=== PATIENT | male | born 1995 | race Caucasian/White ===

== ENCOUNTER 2020-09-23 13:39 | Emergency (ER) | payer SELFPAY ==
[~2020-09-23] VITALS: Ht 175 cm; Wt 86.2 kg
[2020-09-23 13:41] VITALS: BP 146/86
[2020-09-23] MEDS ORDERED: cefTRIAXone 1,000 MG/2.86 ml vial (IM ONLY) IM STA (13:52)
[2020-09-23] MEDS ORDERED: KETOROLAC 60 MG/2 ML VIAL IM STA (13:52)
--- NOTE | 2020-09-23 13:52 | ED EENT ---
History of Present Illness General Chief Complaint: Dental Problems/Pain Stated Complaint: DENTAL PAIN Nursing Triage Note: Patient reports right lower dental pain for 2 days. Source: patient History of Present Illness Date Seen by Provider: Sep 23, 2020 Time Seen by Provider: 13:40 Initial Comments 25-year-old male presenting with complaints of right lower posterior dental pain. He states this has been going on for 2 to 3 days and getting worse. He denies any fever or chills. He denies any trauma to his teeth. He has not had any improvement with taking Tylenol and ibuprofen. He has had similar problems with of the teeth and took some leftover antibiotics however he does not have any medication for this episode. He states that he just recently moved to [facility] and the [facility] and does not have a primary care provider since he has no insurance. Counseled patient on the [facility] clinic so that he could follow-up and be seen as well as the dental clinic availability. He states that he felt like the pain was more severe than any dental pain he had had previously. He has no drainage in his mouth. There is mild swelling to the gums around the posterior teeth on the right lower side. Timing/Duration: gradual Severity: severe Location: dental Prearrival Treatment: no prearrival treatment Associated Symptoms: No change in hearing, No cough, No drooling, No ear drainage; facial pain/swelling (Right mandible and jaw pain); No fever; malaise; No nasal congestion/drainage, No poor fluid intake, No poor solids intake, No sinus infection, No sore throat; tooth pain (Right posterior mandible tooth pain); No voice change Allergies and Home Medications Allergies Coded Allergies: No Known Drug Allergies (Unverified , 09/23/20) Home Medications Amoxicillin 500 Mg Capsule, 500 MG PO TID Prescribed by: ALISON DEAL on 09/23/20 1415 Ibuprofen 800 Mg Tablet, 800 MG PO Q8H PRN for PAIN Prescribed by: ALISON DEAL on 09/23/20 1415 Tramadol HCl 50 Mg Tablet, 50 MG PO Q6H PRN for PAIN-SEVERE (8-10) Prescribed by: ALISON DEAL on 09/23/20 1416 Patient Home Medication List Home Medication List Reviewed: Yes Review of Systems Review of Systems Constitutional: No chills, No fever Eyes: Denies Blurred Vision Ears: No Symptoms Reported Nose: no symptoms reported Mouth: see HPI Throat: no symptoms reported Respiratory: no symptoms reported Cardiovascular: no symptoms reported Gastrointestinal: no symptoms reported Musculoskeletal: no symptoms reported Skin: No rash Neurological: Anxiety Hematologic/Lymphatic: No Symptoms Reported Past Idckggy-Ithzdc-Oforun Hx Past Med/Social Hx: Reviewed Nursing Past Med/Soc Hx Patient Social History Smoking Status: Current Everyday Smoker Recent Infectious Disease Expo: No Past Medical History Surgeries: No Respiratory: Yes Asthma Cardiac: No Neurological: No Genitourinary: No Gastrointestinal: No Musculoskeletal: No Endocrine: No HEENT: No Cancer: No Psychosocial: No Physical Exam Vital Signs Vital Signs - First Documented 09/23/20 13:41 Temp 36.7 Pulse 89 Resp 16 B/P (MAP) 146/86 (106) Pulse Ox 99 O2 Delivery Room Air Height, Weight, BMI Height: '" Weight: lbs. oz. kg; 28.00 BMI Method: General Appearance: mild distress (Anxious) Eyes: bilateral eye PERRL, bilateral eye EOMI Mouth/Throat: dental tenderness (Right posterior mandible dental pain and mild swelling to the gums) Neck: full range of motion, supple Cardiovascular: normal peripheral pulses, regular rate, rhythm Respiratory: chest non-tender, lungs clear, normal breath sounds Neurologic/Psychiatric: alert, oriented x 3 Skin: normal color, warm/dry Progress/Results/Core Measures Results/Orders My Orders Orders - ALISON DEAL MD Ceftriaxone For Im Use (Rocephin For Im (09/23/20 13:52) Ketorolac Injection (Toradol Injection) (09/23/20 13:52) Lidocaine 1% Inj 20 Ml (Xylocaine 1% Inj (09/23/20 14:00) Medications Given in ED Current Medications Medications Dose Ordered Sig/Vidya Route Start Time Stop Time Status Last Admin Dose Admin Lidocaine HCl 2.1 ml ONCE ONCE INJ 09/23/20 14:00 09/23/20 14:01 DC 09/23/20 14:00 2.1 ML Vital Signs/I&O 09/23/20 13:41 Temp 36.7 Pulse 89 Resp 16 B/P (MAP) 146/86 (106) Pulse Ox 99 O2 Delivery Room Air Blood Pressure Mean: 106 Progress Progress Note : Progress Note Treat with Rocephin IM and Toradol shot here in the ED to help with pain and boost his antibiotics. Sent home with prescriptions for amoxicillin, ibuprofen, tramadol. Counseled to follow-up with the [facility] clinic and get established for primary care as well as dental care. Departure Impression Primary Impression: Pain due to dental caries Additional Impression: Dental abscess Disposition: HOME, SELF-CARE Condition: Stable Departure-Patient Inst. Decision time for Depature: 14:12 Referrals: NO,LOCAL PHYSICIAN (PCP) Primary Care Physician [facility] Patient Instructions: Dental Pain ED, Tooth Abscess (DC) Add. Discharge Instructions: Take antibiotics and follow up with Dentist as soon as possible for definitive care Call [phone] if you want to follow up with [facility] and get established for primary care as well as to arrange follow up with dentist All discharge instructions reviewed with patient and/or family. Voiced understanding. Scripts Tramadol HCl (Tramadol HCl) 50 Mg Tablet 50 MG PO Q6H PRN for PAIN-SEVERE (8-10) for 3 Days, #12 TAB 0 Refills Prov: ALISON DEAL MD 09/23/20 Amoxicillin (Amoxicillin) 500 Mg Capsule 500 MG PO TID for dental infection for 10 Days, #30 CAP 0 Refills Prov: ALISON DEAL MD 09/23/20 Ibuprofen (Ibuprofen) 800 Mg Tablet 800 MG PO Q8H PRN for PAIN for 10 Days, #30 TAB 0 Refills Prov: ALISON DEAL MD 09/23/20 Images Mouth/Nose 1 - Caries, Swelling (Mild swelling to the gums around the teeth), Tenderness (Tender to palpation and movement) ALISON DEAL MD Sep 23, 2020 13:52
[2020-09-23] MEDS ORDERED: LIDOCAINE 1% INJ 20 ML 20 ML VIAL INJ ONE (14:00)
[2020-09-23] MEDS ORDERED: TRM50T PO (14:15)
[2020-09-23] MEDS ORDERED: IBUP-1780 PO (14:15)
[2020-09-23] MEDS ORDERED: AMOX500C2 PO (14:15)
== END 2020-09-23 14:32 | disposition home or self-care (01) ==
LOC: ER FS 13:41
DX: K02.9 Dental caries, unspecified (principal); K04.7 Periapical abscess without sinus; I10 Essential (primary) hypertension; F17.200 Nicotine dependence, unspecified, uncomplicated
CPT/HCPCS: 99284

== ENCOUNTER 2020-09-25 10:31 | Emergency (ER) | payer SELFPAY ==
[~2020-09-25] VITALS: Ht 175 cm; Wt 86.2 kg
[~2020-09-25 10:31] MED LIST: AMOX500C2 PO; IBUP-1780 PO; TRM50T PO
[2020-09-25 10:35] VITALS: BP 143/79
[2020-09-25] MEDS ORDERED: KETOROLAC 60 MG/2 ML VIAL IM STA (11:10)
[2020-09-25] MEDS ORDERED: LIDOCAINE 1% INJ 20 ML 20 ML VIAL INJ ONE (11:15)
[2020-09-25] MEDS ORDERED: cefTRIAXone 1,000 MG/2.86 ml vial (IM ONLY) IM ONE (11:15)
--- NOTE | 2020-09-25 11:18 | ED EENT ---
History of Present Illness General Chief Complaint: Dental Problems/Pain Stated Complaint: DENTAL PAIN Source: patient Exam Limitations: no limitations History of Present Illness Date Seen by Provider: Sep 25, 2020 Time Seen by Provider: 10:49 Initial Comments Here with report of right lower jaw dental pain. Seen a few days ago for the same. Was given a gram of Rocephin IM as well as Toradol IM and started on antibiotics. Patient misunderstood how to take the antibiotics and has been taking only amoxicillin 500 mg 1 tablet daily instead of 3 times daily. He has dental appointment today. Did get prescription for tramadol and has been taking [id number] ibuprofen and states that has helped some. Does occasionally get some nausea with severe pain. Denies current nausea or vomiting. Timing/Duration: gradual, last week Severity: moderate Location: mouth, dental Associated Symptoms: facial pain/swelling; No fever, No sore throat; tooth pain; No voice change Allergies and Home Medications Allergies Coded Allergies: No Known Drug Allergies (Unverified , 09/23/20) Home Medications Amoxicillin 500 Mg Capsule, 500 MG PO TID Prescribed by: ALISON DEAL on 09/23/20 1415 Ibuprofen 800 Mg Tablet, 800 MG PO Q8H PRN for PAIN Prescribed by: ALISON DEAL on 09/23/20 1415 Tramadol HCl 50 Mg Tablet, 50 MG PO Q6H PRN for PAIN-SEVERE (8-10) Prescribed by: ALISON DEAL on 09/23/20 1416 Patient Home Medication List Home Medication List Reviewed: Yes Review of Systems Review of Systems Constitutional: see HPI Ears: No Symptoms Reported Nose: no symptoms reported Mouth: see HPI, pain, swelling Throat: no symptoms reported Respiratory: No cough, No short of breath Cardiovascular: no symptoms reported Gastrointestinal: see HPI; No abdominal pain Skin: change in color (Mild redness to the face on the right lower jaw posterior); No lesions Past [place]-Upazuo-Okqejt Hx Past Med/Social Hx: Reviewed Nursing Past Med/Soc Hx Patient Social History Type Used: Cigarettes 2nd Hand Smoke Exposure: No Recent Hopitalizations: No Seasonal Allergies Seasonal Allergies: No Past Medical History Surgeries: No Respiratory: Yes Asthma Cardiac: No Neurological: No Genitourinary: No Gastrointestinal: No Musculoskeletal: No Endocrine: No HEENT: No Cancer: No Psychosocial: No Integumentary: No Blood Disorders: No Family Medical History Reviewed Nursing Family Hx Physical Exam Height, Weight, BMI Height: '" Weight: lbs. oz. kg; 28.00 BMI Method: General Appearance: WD/WN, no apparent distress Nose: normal inspection; No discharge Mouth/Throat: pharynx normal, maxillary swelling (Right lower posterior); No pharynx swelling, No tongue swollen; other (No significant dental caries noted. Gums reddened along the right lower. No obvious abscess.) Neck: full range of motion, supple, normal inspection Cardiovascular: regular rate, rhythm, no murmur Respiratory: lungs clear, normal breath sounds Neurologic/Psychiatric: alert, oriented x 3 Skin: warm/dry, other (Mild erythema right lower posterior jaw line where swelling and tenderness are) Progress/Results/Core Measures Results/Orders My Orders Orders - OUMAR FARRELL MD Rocephin 1000mg Im (09/25/20 11:15) Toradol 60 Mg Im (09/25/20 11:10) Dexamethasone Injection (Decadron Inje (09/25/20 11:15) Lidocaine 1% Inj 20 Ml (Xylocaine 1% Inj (09/25/20 11:15) Progress Progress Note : Progress Note Seen and evaluated. We will redose Rocephin 1 g IM now. Decadron 10 mg IM and Toradol 60 mg IM ordered as well. Patient has dental appointment today which she will keep. He was reinstructed on taking his amoxicillin and will continue that. Discharged home with return precautions. Patient verbalized understanding of instructions and agreement with plan. Departure Impression Primary Impression: Dental abscess Disposition: 01 HOME, SELF-CARE Condition: Stable Departure-Patient Inst. Decision time for Depature: 11:17 Referrals: NO,LOCAL PHYSICIAN (PCP/Family) Primary Care Physician Patient Instructions: Tooth Abscess (DC), Dental Pain ED Add. Discharge Instructions: All discharge instructions reviewed with patient and/or family. Voiced understanding. You may take ibuprofen 800 mg every 8 hours as needed for pain. You may also take Tylenol/acetaminophen 1000 mg every 8 hours as needed for pain. Take the amoxicillin tablet 500 mg, 1 tablet every 8 hours until gone. Keep appointment with dentist today as scheduled. Take other prescribed pain medicine as previously prescribed. You may use cold packs to area of concern on the right cheek to reduce swelling. Return for worse pain, breathing or swallowing pro blems, weakness, persistent vomiting or other concerns as needed. OUMAR FARRELL MD Sep 25, 2020 11:18
== END 2020-09-25 11:32 | disposition home or self-care (01) ==
LOC: EDUNIT# 10:31 → ER FS 10:32
DX: K04.7 Periapical abscess without sinus (principal)
CPT/HCPCS: 99284